=== PATIENT | male | born 1950 | race Caucasian/White ===

== ENCOUNTER → 2016-12-30 | Outpatient (CLI) | payer OTHER | END | disposition home or self-care (01) | LOC: GMAM 11:40 | PROVIDERS: ATTEND Family Medicine | DX: Z12.5 Encounter for screening for malignant neoplasm of prostate (principal) ==

== ENCOUNTER 2017-04-29 18:27 | Emergency (ER) | payer OTHER ==
[~2017-04-29 18:27] MED LIST: levoFLOXacin 500 MG TAB ONE
[2017-04-29] MEDS ORDERED: methylPREDNISolone SODIUM SUC 125 MG/2 ML VIAL ONE (21:16)
--- NOTE | 2017-04-29 22:37 | ED.PDOC ---
History of Present Illness - General Chief Complaint: Respiratory Problem Stated Complaint: cough/low O2 saturation Time Seen by Provider: 04/29/17 22:32 Source: patient Exam Limitations: no limitations - History of Present Illness Comments: Adonis Fernandes 66 y/o male came to [facility] after he was told by his primary md which he was initially seen at his clinic given breathing treatment but afterwards his O2 saturation went low.He had been coughing with whitish thick phlegm for the last 2-3 days with flu like symptoms;denies chills ,n/v. Timing/Duration: getting worse, other - see hpi Cough Quality/Degree: productive cough Possible Cause: other - stated has it with change in weather Improving Factors: nothing, eating Associated Symptoms: other - see hpi Respiratory Risk Factors: other - weather Review of Systems - Review of Systems Constitutional: States: no symptoms reported EENTM: States: no symptoms reported Respiratory: States: see HPI Cardiology: States: no symptoms reported Gastrointestinal/Abdominal: States: no symptoms reported Genitourinary: States: no symptoms reported Musculoskeletal: States: no symptoms reported Past Medical History (General) - Patient Medical History Hx Cardiac Disorders: Yes - CAD/VT Hx Other PMH: Yes - PAD- Surgical History: coronary bypass surgery, other - cardiac stents ,iliac artery stents - Social History Hx Physical Abuse: No Hx Emotional Abuse: No Hx Suspected Abuse: No - Activities of Daily Living Grooming Ability: Independent Eating (Feeding) Ability: Independent Toileting Ability: Independent Family Medical History - Family History Father Hx Cardiac Disease: Yes Physical Exam - Physical Exam General Appearance: Alert, No apparent distress Eye Exam: bilateral normal ENT Exam: normal ENT inspection, hearing grossly normal, pharynx normal Neck: non-tender, supple, trachea midline Respiratory: chest non-tender, no respiratory distress, no accessory muscle use , rhonchi - bilaterally Cardiovascular/Chest: normal peripheral pulses, regular rate, rhythm Gastrointestinal/Abdominal: non tender, soft, no organomegaly Extremity: no calf tenderness, pedal edema - 2+ Neurologic: alert, normal mood/affect, oriented x 3 Skin Exam: normal color, warm/dry Progress - Progress Progress: 04/29/17 22:41 See separate sheet for labs/medication given - EKG/XRAY/CT EKG: Sinus, nonspecific ST T wave Chg Comments: heart rate-70 XRAY: chest - left lung infiltrate possibility pneumonia Departure - Departure Clinical Impression: Pneumonia Qualifiers: Pneumonia type: due to unspecified organism Laterality: left Lung location: lower lobe of lung Qualified Code(s): J18.1 - Lobar pneumonia, unspecified organism Time of Disposition: 21:50 Disposition: Discharge to Home or Self Care Condition: Fair Departure Forms: ED Discharge - Pt. Copy, Patient Portal Self Enrollment Referrals: Leroy Templeton MD [Primary Care Provider] - 1-2 Weeks Additional Instructions: Given Rx for antibiotics,MDI,cough medicine,steroid tabs
== END 2017-04-29 21:15 | disposition home or self-care (01) ==
LOC: ER 18:27
DX: J18.1 Lobar pneumonia, unspecified organism (principal); I25.2 Old myocardial infarction; Z95.1 Presence of aortocoronary bypass graft; Z98.61 Coronary angioplasty status; E11.9 Type 2 diabetes mellitus without complications
CPT/HCPCS: 36415; 80053; 83880; 84484; 85025; J2930

== ENCOUNTER → 2018-01-03 | Outpatient (CLI) | payer OTHER | LOC: GMAM 10:32 | PROVIDERS: ATTEND Family Medicine | DX: Z12.5 Encounter for screening for malignant neoplasm of prostate (principal) ==

== ENCOUNTER → 2018-09-16 | Outpatient (CLI) | payer OTHER ==
--- NOTE | 2018-09-19 05:41 | CT ---
Procedure: CT LUNG SCREENING Exam Date: 09/16/2018 Ordering Provider: Clemente Ordaz Clinical Indication: Z87.891 Comparison: 01/04/2018 chest x-ray Technique: Using a multislice scanner, sequential axial imaging was obtained in the thorax from the level of the thoracic inlet through the lung bases without IV contrast. A low dose protocol was utilized. 2D sagittal and coronal reconstructed images were obtained. This exam was performed according to our departmental dose optimization program which includes use of automated exposure control, adjustment of the mA and/or kV according to patient size and/or use of iterative reconstruction technique. FINDINGS: Lungs and large airways: Subsegmental atelectasis in the lingula and both lower lobes. Mild paraseptal emphysematous change. No focal lung consolidation. No suspicious lung lesions. Elevation of the left hemidiaphragm. Pleura: No pleural effusion. No pneumothorax. Mediastinum and denise: No lymphadenopathy. Heart and great vessels: Borderline cardiomegaly. No pericardial effusion. Dilatation of the ascending aorta measuring 3.9 cm. Extensive aortic calcification. Prior CABG. Chest wall, lower neck, axillae: No axillary lymphadenopathy. Upper abdomen: Nonacute Bones: Sternotomy wiring. No destructive bony lesions. IMPRESSION: 1.Lung RADS Category 1S - No nodule or definitely benign nodules (probability of malignancy less than 1%). Follow-up: Continue annual screening with Low Dose Chest CT in 12 months. 2.Dilatation of the ascending aorta measuring 3.9 cm. Category 0: INCOMPLETE Prior chest CT examination(s) being located for comparison, part or all of lungs cannot be evaluated. MANAGEMENT: Additional lung cancer screening CT images and/or comparison to prior chest CT examination is needed. Category 1: NEGATIVE. No nodules and definitely benign nodules. Findings include no lung nodules. Nodule(s) with specific calcifications: complete, central, popcorn, concentric rings and fat containing nodule(s) are considered benign. MANAGEMENT: Continue annual screening with low dose CT in 12 months. Category 2: BENIGN APPEARANCE or behavior. Nodules with a very low likelihood of becoming a clinically active cancer due to size or lack of growth. Findings include solid nodules < 6 mm or new nodule < 4 mm. Part solid nodule(s) < 6 mm total diameter on baseline screening (which is the average of all three dimensions). Non-solid groundglass nodule(s) < 20 mm or > 20 mm and unchanged or slowly growing. Category three or four nodules that are unchanged for > 3 months. MANAGEMENT: Continue annual screening with low dose CT in 12 months. Category 3: PROBABLY BENIGN. Probably benign finding(s)- short-term follow-up suggested; which includes nodules at the low likelihood of becoming a clinically active cancer. Findings include solid nodule(s) > 6 to < 8 mm at baseline or new nodules 4 mm to < 6 mm. Part solid nodule(s) is > 6 mm total diameter with solid component < 6 mm or new nodules < 6 mm in total diameter. Non-solid groundglass nodule(s) > [address] or new. MANAGEMENT: Six month follow-up low dose CT. Category 4: SUSPICIOUS. Findings for which additional diagnostic testing and/or tissue sampling is recommended. 4A: SUSPICIOUS. Findings include solid nodule(s) > 8mm to < 15 mm at baseline or growing nodule < 8 mm or new nodules 6 mm to < 8 mm. Part solid nodule(s) > 6 mm with solid component > 6 mm to < 8 mm or with a new or growing < 4 mm solid component. Any endobronchial nodule. MANAGEMENT: Three month low dose chest CT, PET/CT may be used when there is a > 8 mm solid component. 4B: SUSPICIOUS. Findings include solid nodule(s) > 15 mm or new or growing, and > 8 mm. Part solid nodule(s) with a solid component > 8 mm or a new or growing > 4 mm solid component. MANAGEMENT: Chest CT with or without contrast, PET/CT and/or tissue sampling depending on the probability of malignancy and comorbidities. PET/CT may be used when there is a > 8 mm solid component. 4X: SUSPICIOUS. Findings include category three or four nodules with additional features or imaging findings that increases suspicion for malignancy. MANAGEMENT: Chest CT with or without contrast, PET/CT and/or tissue sampling depending on the probability of malignancy and comorbidities. PET/CT may be used when there is a > 8 mm solid component. S modifier is added to the category if clinically significant or potentially clinically significant findings (non-lung cancer findings) are present. MANAGEMENT: As appropriate to the specific finding. C modifier is added to the category for patients with a prior diagnosis of lung cancer who return to screening. Electronically signed by: Jaswinder Landers MD 09/19/2018 5:38 AM CDT
== END ==
LOC: CT 15:00
PROVIDERS: ATTEND Family Medicine
DX: Z87.891 Personal history of nicotine dependence (principal); I77.810 Thoracic aortic ectasia

== ENCOUNTER → 2018-12-28 | Outpatient (CLI) | payer OTHER | LOC: LAB.O 16:48 | PROVIDERS: ATTEND Family Medicine | DX: D45 Polycythemia vera (principal); I10 Essential (primary) hypertension; E11.9 Type 2 diabetes mellitus without complications ==

== ENCOUNTER → 2019-01-04 | Outpatient (CLI) | payer OTHER | LOC: LAB.NP 16:18 | PROVIDERS: ATTEND Family Medicine | DX: D75.1 Secondary polycythemia (principal); R06.02 Shortness of breath ==

== ENCOUNTER → 2019-01-19 | Outpatient (CLI) | payer OTHER ==
--- NOTE | 2019-01-20 09:35 | CT ---
EXAM DESCRIPTION: Abdomen/Pelvis w/Contrast: Computed Tomography. CLINICAL HISTORY: 68 years Male Hemangioma COMPARISON: Chest CT scan with IV contrast on the same visit. TECHNIQUE: Spiral-axial scans at 5.0 x 5.0 mm intervals through the abdomen and pelvis, after nonionic IV contrast arterial phase and portal venous phase with no oral contrast. Coronal and sagittal 2.0 mm reconstructions. Delayed scans, 7 minutes, liver through the pelvis. Axial-spiral 5mm. No adverse reactions. Total Exam DLP: 4004.42 mGy-cm. This exam was performed according to our departmental dose-optimization program which includes automated exposure control, adjustment of the mA and/or kV according to patient size and/or use of iterative reconstruction technique; to reduce radiation dose to as low as reasonably achievable (ALARA). FINDINGS: Liver, Stomach, Spleen, Adrenal Glands: 2 subcentimeter low-density objects, one in the medial segment of the left hepatic lobe and 1 in the anterior superior right hepatic lobe are visualized. No change in all phases of the scans through the liver. These are most likely cysts, though exact density measurement is not possible due to small size. No other focal hepatic lesions. Stomach and other solid organs are negative. Pancreas, Gallbladder, Ducts: Gallbladder prominent with minimal sludge or radiodense material in the dependent portion. Kidneys and Ureters: Bilateral perinephric stranding is physiologic. Mesentery: Scattered fascial thickening is physiologic. No free fluid or free air. Aorta: Moderate atherosclerotic calcification. Bilateral renal artery stents proximally. Infrarenal aorta with double lumen. Aorto-iliac graft visualized superior to the chickaloon distal aorta and bifurcation. Distal extent anastomosis to the common femoral arteries. No contrast extravasation from the graft. Small Bowel: Caliber upper normal limits with scattered gas and fluid. Fecalization distally Terminal Ileum/Cecum: Normal caliber with fecalization of the terminal ileum gas and fecal material in the cecum. Normal caliber of the appendix. No inflammatory changes surrounding fat. Colon: Diffuse minimal fecal material. Mild redundancy of the sigmoid colon. Pelvic Organs: Prostate gland is slightly enlarged. Minimal in impression on the base of the urinary bladder. No radiodense stones in the urinary bladder. Minimal wall thickening. No free fluid in the pelvis. Spine and Bony Pelvis: Spondylosis and ankylosis lower thoracic spine also minimal lumbar spondylosis. Abdominal Wall/Back Soft Tissues: A hernia abutting the umbilicus containing mesentery but no bowel. Defect measures 1.6 x 1.5 cm. Bilateral inguinal lymph nodes. IMPRESSION: 1. 2 small subcentimeter hepatic cysts but no focal masses or abnormal lesions. 2. Periumbilical mesenteric hernia not containing bowel. Gallbladder slightly dilated with minimal sludge. Normal ducts and pancreas. Consider follow-up ultrasound. 3. Advanced atherosclerotic disease in the aorta. Bilateral proximal renal artery stents and also calcifications in the other major branch vessels. Thrombosis of a second channel abutting the infrarenal aorta. Aortoiliac graft at the distal abdominal aorta anterior to the chickaloon atherosclerotic vessels. Distal anastomosis in the common femoral arteries. 4. Fecalization of the distal ileum and terminal ileum but no small bowel or colonic obstruction. Appendix visualized. No inflammatory changes around the bowel. Minimal constipation of the colon and redundant sigmoid with no complications. 5. Periumbilical hernia containing mesentery but no fat or fluid. Electronically signed by: Cain Batista MD 01/20/2019 9:34 AM CDT
--- NOTE | 2019-01-20 11:57 | CT ---
EXAM DESCRIPTION: Chest w/Contrast : Computed Tomography. CLINICAL HISTORY: 68 years Male Hemangioma COMPARISON: CT scan abdomen and pelvis with IV contrast on this visit. Low dose chest CT lung cancer screening 09/16/2018. TECHNIQUE: Spiral-axial scans at 5 x 5 mm intervals through the lungs and thorax without IV contrast. 2.5 x 5 mm lung algorithm axial reconstructions. Coronal and sagittal 2.0 Mm reconstructions. No adverse reactions. Total Exam DLP: 627.14 mGy-cm. This exam was performed according to our departmental dose-optimization program which includes automated exposure control, adjustment of the mA and/or kV according to patient size and/or use of iterative reconstruction technique; to reduce radiation dose to as low as reasonably achievable (ALARA). Nodule measurements under 10 mm are given as mean value of 3 axes diameters. FINDINGS: Lungs and large airways: Paraseptal blebs are again seen, more numerous in the upper lobes. Bilateral lungs showing mosaic density associated with COPD. Stable atelectasis and scarring in the inferior lingula. Also larger region involving the posterior medial base of the left lower lobe with some air bronchograms noted. Stable since the prior study. Posterior dependent atelectasis with subpleural blebs abutting the right lower lobe and right upper lobe. 3.5 mm subpleural nodule right upper lobe is stable on axial series 9, image 31. Pleural spaces: Minimal effusion versus thickening in the left base. No pneumothorax. Mediastinum and Corina: Normal sized lymph nodes. No large soft tissue masses. Great vessels and Heart: Coronary artery calcifications and stents. Also calcifications in the brachiocephalic vessels aortic arch and descending thoracic aorta. Soft tissues of neck base, axillae, and chest wall: Poorly enhancing nodule in the inferior right thyroid lobe posteriorly just anterior to the innominate artery, dimensions 2.1 x 1.6 cm., Not well seen on prior study, most likely due to low-dose technique. Osseous structures: . Sternotomy wires. Bilateral mild sternoclavicular arthrosis and bilateral, number 1 costochondral chondral arthrosis. Thoracic anterior ankylosis and multiple levels of spondylosis cervical and included thoracic levels. All lateral anterior left rib fractures. IMPRESSION: 1. Emphysematous changes in the bilateral lungs and other findings consistent with COPD are stable since the low-dose screening chest CT scan August 2018. Stable nodule right upper lobe. Recommend follow-up low-dose screening CT chest at one year anniversary of baseline study, August 2019. 2.2.1 cm incidental thyroid nodule. Recommend thyroid US. Reference: J Am Kitty Radiol. 2015 Jul;12(2): 143-50 Electronically signed by: Cain Batista MD 01/20/2019 11:55 AM CDT
== END ==
LOC: LAB.O 07:59
PROVIDERS: ATTEND Internal Medicine Hematology & Oncology
DX: D75.1 Secondary polycythemia (principal); D18.00 Hemangioma unspecified site; K76.89 Other specified diseases of liver; K42.9 Umbilical hernia without obstruction or gangrene; I70.0 Atherosclerosis of aorta; Z95.820 Peripheral vascular angioplasty status with implants and grafts

== ENCOUNTER → 2019-06-30 | Outpatient (CLI) | payer OTHER | LOC: LAB.O 15:49 | PROVIDERS: ATTEND Family Medicine | DX: D45 Polycythemia vera (principal) ==

== ENCOUNTER → 2020-01-24 | Outpatient (CLI) | payer OTHER | LOC: GMAM 10:36 | PROVIDERS: ATTEND Family Medicine | DX: Z12.5 Encounter for screening for malignant neoplasm of prostate (principal); E11.21 Type 2 diabetes mellitus with diabetic nephropathy; I10 Essential (primary) hypertension ==

== ENCOUNTER → 2020-02-02 | Outpatient (CLI) | payer MEDICARE | LOC: LAB.O 12:02 | PROVIDERS: ATTEND Internal Medicine Hematology & Oncology | DX: D75.1 Secondary polycythemia (principal) ==